=== PATIENT | male | born 1950 | race Caucasian/White ===

== ENCOUNTER 2023-08-29 13:31 | Emergency (ER) | payer BC, SELFPAY ==
--- NOTE | 2023-08-29 13:37 | ED.EYEPROB ---
HPI - Eye Problem General Chief complaint: Eye Problems Stated complaint: EYE REDNESS Source: patient and RN notes reviewed History of Present Illness HPI Narrative: 72 yo M presents to urgent care with complaints of right eye redness that started today. Pt states this morning, he noticed some right eye irritation and discharge to his right eye. Pt states his 5 yr old grandson and noticed his eye was red adn wanted him to get checked out. Denies any eye pain, EOM pain, fevers, chills, significant visual disturbance, fevers, or chills. Pt states his grandson had pink eye 2 weeks ago. Related Data Home Medications Medication Instructions Recorded Confirmed empagliflozin 25 mg tablet mg 08/29/23 (Jardiance) insulin degludec 200 unit/mL (3 unit subcut 08/29/23 mL) subcutaneous pen (Tresiba FlexTouch U-200 insulin) lisinopril 5 mg tablet mg 08/29/23 lovastatin 40 mg tablet mg 08/29/23 metformin 500 mg tablet,extended mg PO 08/29/23 release 24 hr Allergies Allergy/AdvReac Type Severity Reaction Status Date / Time No Known Allergies Allergy Verified 08/29/23 13:48 Review of Systems Review of Systems: CONSTITUTIONAL: Denies fever, chills, or sweats. EYES:right eye redness ENT: Denies otalgia and sore throat CARDIOVASCULAR: Denies chest pain, palpitations, or edema. RESPIRATORY: Denies cough or dyspnea. GASTROINTESTINAL: Denies abdominal pain, nausea, vomiting, or diarrhea. GENITOURINARY: Denies dysuria or hematuria. SKIN: Denies rash or itching. MUSCULOSKELETAL: Denies back pain, joint pain, or myalgia. NEUROLOGIC: Denies headache, numbness, or weakness. Pertinent positives per HPI. PMFSH Comments At the time of my signature, I reviewed and agree with the nursing past medical, surgical, social, and family history. There is no relevant family history pertinent to the patient complaint. Exam Narrative: GENERAL: This is a well-nourished, well-developed patient, in no apparent distress. HEAD: normocephalic, atraumatic. EYES: Right lower conjunctiva injected with dried discharge to lower lash line. Sclera of right eye slightly erythemic. EARS: External ears normal, auditory canals clear and without drainage, TMs normal without perforation. Hearing grossly intact. NOSE: External nose normal with no obvious nasal discharge, nares without redness, no rhinorrhea. THROAT: Mucous membranes moist, posterior pharynx clear. NECK: Neck supple, non-tender without lymphadenopathy, masses or thyromegaly. CARDIOVASCULAR: Regular rate and rhythm without murmurs, gallops, or rubs. RESPIRATORY: Clear to auscultation. Breath sounds equal bilaterally. No wheezes, rales, or rhonchi. GASTROINTESTINAL: Abdomen soft, non-tender, nondistended. Bowel sounds are active. No hepato-splenomegaly, or palpable masses. No guarding. SKIN: warm, intact with no suspicious lesions or rash, good texture and turgor. NEURO: awake, alert, and oriented to person, place and time. There were no obvious focal neurologic abnormalities. EXTREMITIES: No clubbing, cyanosis, or edema. No joint tenderness, effusion, or edema noted. BACK: Nontender without deformity or crepitus. No flank tenderness. Course Course Level of Care: Express Care Visit Vital Signs Vital signs: Vital Signs Temperature 98.1 F 08/29/23 13:42 Pulse Rate 102 H 08/29/23 13:42 Respiratory Rate 16 08/29/23 13:42 Blood Pressure 122/71 08/29/23 13:42 Pulse Oximetry 97 08/29/23 13:42 Temperature 98.1 F 08/29/23 13:42 Pulse Rate 102 H 08/29/23 13:42 Respiratory Rate 16 08/29/23 13:42 Blood Pressure 122/71 08/29/23 13:42 Pulse Oximetry 97 08/29/23 13:42 Reviewed MDM - Eye Problem MDM Narrative Medical decision making narrative: Your exam today shows Conjunctivitis, You have been given a prescription for eye drops. Use the eye drops as instructed. If you are not better in two (2) days, you need to follow up with an ophthal
[2023-08-29 13:42] VITALS: BP 122/71; PULSE 102; RESP 16; TEMP 36.7; O2SAT 97
== END 2023-08-29 13:55 | disposition home or self-care (01) ==
PROVIDERS: Emergency Provider Nurse Practitioner Family; PCP Family Medicine
DX: H10.9 Unspecified conjunctivitis (principal); Z79.4 Long term (current) use of insulin; Z79.84 Long term (current) use of oral hypoglycemic drugs; Z79.899 Other long term (current) drug therapy
CPT/HCPCS: 99203; G0463